=== PATIENT | male | born 1965 | race Caucasian/White ===

== ENCOUNTER 2023-12-18 05:28 | Inpatient (IN) | payer MEDICARE, OTHER ==
[2023-12-18] VITALS (34 sets, daily range): BP systolic 85–156; BP diastolic 62–138; TEMP 97–97.9; O2SAT 5–98
[~2023-12-18] VITALS: Ht 167.6 cm; Wt 45.8 kg
[2023-12-18] MEDS ORDERED: NITROGLYCERIN 0.4 MG/TAB BOTTLE ONE (05:41)
[2023-12-18] MEDS: NITROGLYCERIN 0.4 MG/TAB BOTTLE SL ONE ×2 (05:48→06:28)
[2023-12-18] MEDS: ALBUTEROL FS 2.5 MG/3 ML VIAL.NEB NEB ONE (05:50)
[2023-12-18] MEDS: IPRATROPIUM NEB FS 0.5 MG/2.5 ML AMPUL.NEB NEB ONE (05:50)
[2023-12-18] MEDS ORDERED: ALBUTEROL FS 2.5 MG/3 ML VIAL.NEB ONE (05:54)
[2023-12-18] MEDS ORDERED: IPRATROPIUM NEB FS 0.5 MG/2.5 ML AMPUL.NEB ONE (05:54)
[2023-12-18 06:20] LABS: EOSINOPHILS # (AUTO) 0.3 K/uL (0.0-0.7); EOSINOPHILS % (AUTO) 1.5 % (0.0-6.0); HEMATOCRIT 34 % (39-51); LYMPHOCYTES # (AUTO) 0.8 K/uL (0.8-4.8); LYMPHOCYTES % (AUTO) 4.2 % (20.0-44.0); MEAN CORPUSCULAR HEMOGLOBIN 30 PG (26.0-33.0); MEAN CORPUSCULAR HGB CONC 33 g/dl (31.0-36.0); MEAN CORPUSCULAR VOLUME 91 fL (80-96); MONOCYTES # (AUTO) 0.4 K/uL (0.1-1.30); MONOCYTES % (AUTO) 1.9 % (2.0-12.0); NEUTROPHILS # (AUTO) 18.4 K/uL (1.8-8.9); NEUTROPHILS % (AUTO) 92.4 % (43.0-81.0); PLATELET COUNT (AUTO) 373 K/uL (150-450); RED BLOOD CELL COUNT(AUTO) 3.73 MIL/uL (4.5-6.0); RED CELL DISTRIBUTION WIDTH 16.5 % (11.5-15.0); WHITE BLOOD COUNT (AUTO) 19.8 K/uL (4.3-11.0)
[2023-12-18 06:26] LABS: CALCIUM, SERUM 9.1 mg/dL (8.5-10.1); CARBON DIOXIDE 28 mmol/L (21-32); CHLORIDE 100 mmol/L (98-107); GLUCOSE 205 mg/dL (74-106); POTASSIUM 4.1 mmol/L (3.5-5.1); SODIUM SERUM 138 mmol/L (136-145); UREA NITROGEN, BLOOD 12 mg/dL (7-18)
[2023-12-18 06:28] LABS: APPEARANCE,URINE CLEAR (CLEAR); BILIRUBIN,URINE NEGATIVE (NEGATIVE); BLOOD, URINE NEGATIVE Ery/uL (NEGATIVE); COLOR,URINE YELLOW (YELLOW); KETONES,URINE NEGATIVE (NEGATIVE); LEUKOCYTE ESTERASE ,URINE NEGATIVE (NEGATIVE); NITRITE, URINE NEGATIVE (NEGATIVE); PH,URINE 5.5 (5.0-8.0); PROTEIN,URINE TRACE mg/dl (NEGATIVE); UGLUCOSE NEGATIVE (NEGATIVE); UROBILINOGEN,URINE 0.2 EU/dL (0.2)
[2023-12-18 06:29] LABS: D-DIMER 2.22 mg/L(FEU (0.17-0.50); INR 1.47 (0.91-1.10); PARTIAL THROMBOPLASTIN TIME 33.4 SEC (24.3-34.3); PROTHROMBIN TIME 15.2 SECS (9.2-11.1)
[2023-12-18 06:32] LABS: ALANINE AMINOTRANSFERASE 37 U/L (12-78); ALBUMIN 2.1 g/dL (3.4-5.0); ALKALINE PHOSPHATASE 113 U/L (46-116); ASPARTATE AMINOTRANSFERASE 33 U/L (15-37); BILIRUBIN,DIRECT 0.3 mg/dL (0.0-0.2); BILIRUBIN,TOTAL 0.8 mg/dL (0.2-1.0); TOTAL PROTEIN, SERUM 7.6 g/dL (6.4-8.2)
[2023-12-18 06:35] LABS: LACTIC ACID 2.9 mmol/L (0.4-2.0)
[2023-12-18] MEDS ORDERED: IV NS 0.9% 250 ML IV ONE (06:52)
[2023-12-18] MEDS ORDERED: IOHEXOL-350 100 ML VIAL IV ONE (06:52)
[2023-12-18] MEDS ORDERED: VANCOMYCIN 1 GM /D5W 250 ML PB IV ONE (07:07)
[2023-12-18] MEDS: VANCOMYCIN 1 GM in IV D5W 250 ML IV ONE (07:12)
[2023-12-18] MEDS: IV NS 0.9% 250 ML BAG IV ONE (07:12)
[2023-12-18] MEDS ORDERED: DILTIAZEM HCL 50 MG IV IV ONE (07:30)
[2023-12-18] MEDS ORDERED: CYAN-51 PO (07:48)
[2023-12-18] MEDS ORDERED: NA P133E RC (07:48)
[2023-12-18] MEDS ORDERED: MAGN400O6 PO (07:48)
[2023-12-18] MEDS ORDERED: ACET-868 PO (07:48)
[2023-12-18] MEDS ORDERED: HYDR-4076 PO (07:48)
[2023-12-18] MEDS ORDERED: DILT-32 PO (07:48)
[2023-12-18] MEDS ORDERED: METF-440 PO (07:48)
[2023-12-18] MEDS ORDERED: INSU100V39 SQ (07:48)
[2023-12-18] MEDS ORDERED: VANC125C11 PO (07:48)
[2023-12-18] MEDS ORDERED: ATOR10TA PO (07:48)
[2023-12-18] MEDS ORDERED: L. A1TAB10 PO (07:48)
[2023-12-18] MEDS ORDERED: HONE44PA TP (07:48)
[2023-12-18] MEDS ORDERED: HYDR-500 PO (07:48)
[2023-12-18] MEDS ORDERED: ALOG6.252 PO (07:48)
[2023-12-18] MEDS ORDERED: METO-357 PO (07:48)
[2023-12-18] MEDS ORDERED: SERT50TA PO (07:48)
[2023-12-18] MEDS ORDERED: ZINC220C6 PO (07:48)
[2023-12-18] MEDS ORDERED: LORA-258 PO (07:48)
[2023-12-18] MEDS ORDERED: MULT-213 PO (07:48)
[2023-12-18] MEDS ORDERED: MAGN200T5 PO (07:48)
[2023-12-18] MEDS ORDERED: ZINC57OI4 TP (07:48)
[2023-12-18] MEDS ORDERED: APIX5TAB PO (07:48)
[2023-12-18] MEDS ORDERED: ASCO-340 PO (07:48)
[2023-12-18] MEDS ORDERED: BISA10SU11 RC (07:48)
[2023-12-18] MEDS ORDERED: CHOL100043 PO (07:48)
[2023-12-18] MEDS ORDERED: DIGO125T PO (07:48)
[2023-12-18] MEDS ORDERED: DILTIAZEM HCL 25 MG IV ONE (08:10)
[2023-12-18] MEDS: CEFEPIME 2 GM in IV D5W 50 ML IV ONE (08:25)
[2023-12-18] MEDS: DILTIAZEM HCL 50 MG IV IV ONE (08:36)
[2023-12-18 09:10] LABS: ABG BASE EXCESS 0.6 mmol/L; ABG OXYGEN SATURATION 98.9 % (92.0-98.5); ABG PCO2 32.8 mmHg (35.0-45.0); ABG PH 7.477 (7.350-7.450); ABG PO2 208.6 mmHg (75.0-100.0); COHb 0.3 % (0.5-1.5); MetHb 0.3 % (0.0-1.5); O2Hb 98.3 % (94.0-97.0); SITE, ABG Right Radial
[2023-12-18] MEDS ORDERED: DIGOXIN INJ 0.5 MG/2 ML AMPUL ONE (09:19)
[2023-12-18] MEDS ORDERED: ZOSYN IVPB 4.5 G in IV D5W 50ml IV SCH (09:21)
[2023-12-18] MEDS: DIGOXIN INJ 0.5 MG/2 ML AMPUL IV ONE (09:27)
[2023-12-18] MEDS ORDERED: ENOXAPARIN SODIUM 40 MG/0.4 ML DISP.SYRIN SQ SCH (09:30)
[2023-12-18] MEDS ORDERED: PIPERACILLIN /TAZOBACTAM 3.375 G in IV D5W 50 ML IV SCH (09:30)
[2023-12-18] MEDS ORDERED: VANCOMYCIN 1 GM in IV D5W 250 ML IV SCH (10:00)
[2023-12-18] MEDS ORDERED: MAGNESIUM HYDROXIDE 30 ML UDC PO PRN (10:30)
[2023-12-18] MEDS ORDERED: DEXTROSE 50%-WATER 50 ML DISP.SYRIN IV PRN (10:30)
[2023-12-18] MEDS: BLOOD SUGAR DIAGNOSTIC 1 EACH STRIP IN SCH (11:22)
[2023-12-18] MEDS: FUROSEMIDE 40 MG/4 ML VIAL IV SCH (11:34)
[2023-12-18] MEDS: ENOXAPARIN SODIUM 60 MG/0.6 ML DISP.SYRIN SQ SCH (11:46)
[2023-12-18] MEDS: ZOSYN IVPB 4.5 G in IV D5W 50ml IV SCH (12:33)
[2023-12-18] MEDS ORDERED: CEFEPIME 2 GM in IV D5W 100 ML IV SCH (13:00)
[2023-12-18] MEDS: INSULIN REGULAR, HUMAN 100 UNIT/ML 3 ML VIAL SQ PRN (13:16)
[2023-12-18] MEDS: Z GUARD REMEDY 4 OZ OINT TP PRN (13:30)
[2023-12-18] MEDS ORDERED: METFORMIN 500 MG TABLET PO SCH (17:00)
[2023-12-18] MEDS ORDERED: APIXABAN 5 MG TABLET PO SCH (17:00)
[2023-12-18] MEDS: VANCOMYCIN 1 GM in IV D5W 250 ML IV SCH (17:33)
[2023-12-18] MEDS: METOPROLOL SUCCINATE 50 MG TAB.SR.24H PO SCH (17:33)
[2023-12-18] MEDS: ATORVASTATIN 10 MG TABLET PO SCH (22:11)
[2023-12-19] VITALS (43 sets, daily range): BP systolic 72–158; BP diastolic 33–129; TEMP 97.5–98.2; O2SAT 5–100
[2023-12-19 04:32] LABS: HEMATOCRIT 39 % (39-51); HEMOGLOBIN 13.3 g/dL (13.5-17.5); LYMPHOCYTES # (AUTO) 0.6 K/uL (0.8-4.8); LYMPHOCYTES % (AUTO) 6.7 % (20.0-44.0); MEAN CORPUSCULAR HEMOGLOBIN 30 PG (26.0-33.0); MEAN CORPUSCULAR HGB CONC 34 g/dl (31.0-36.0); MEAN CORPUSCULAR VOLUME 88 fL (80-96); MONOCYTES # (AUTO) 0.2 K/uL (0.1-1.30); MONOCYTES % (AUTO) 2.1 % (2.0-12.0); NEUTROPHILS # (AUTO) 8.8 K/uL (1.8-8.9); NEUTROPHILS % (AUTO) 91.2 % (43.0-81.0); PLATELET COUNT (AUTO) 147 K/uL (150-450); RED BLOOD CELL COUNT(AUTO) 4.49 MIL/uL (4.5-6.0); RED CELL DISTRIBUTION WIDTH 16.5 % (11.5-15.0); WHITE BLOOD COUNT (AUTO) 9.7 K/uL (4.3-11.0)
[2023-12-19 04:56] LABS: ALBUMIN 1.6 g/dL (3.4-5.0); CALCIUM, SERUM 8.5 mg/dL (8.5-10.1); CREATININE 1.2 mg/dL (0.6-1.3); POTASSIUM 3.1 mmol/L (3.5-5.1); TOTAL PROTEIN, SERUM 6.1 g/dL (6.4-8.2)
[2023-12-19 04:58] LABS: MAGNESIUM 0.9 mg/dL (1.8-2.4)
[2023-12-19 04:59] LABS: LACTIC ACID 2.1 mmol/L (0.4-2.0)
[2023-12-19 05:06] LABS: THYROID STIMULATING HORMONE 2.14 uIU/mL (0.358-3.74)
[2023-12-19] MEDS ORDERED: Magnesium 1GM/D5W 100ML PREMIX PIGGYBACK IV ONE (05:30)
[2023-12-19] MEDS: Magnesium 1GM/D5W 100ML PREMIX 100 ML IV SCH ×2 (05:36→06:59)
[2023-12-19] MEDS: IV NS 0.9% 250 ML IV PRN ×2 (06:06→21:03)
[2023-12-19] MEDS ORDERED: Magnesium 1GM/D5W 100ML PREMIX 100 ML IV SCH (09:30)
[2023-12-19] MEDS: ONDANSETRON HCL/PF 4 MG/2 ML VIAL IVP PRN (10:25)
[2023-12-19] MEDS: POTASSIUM CL. PREMIX PERIPHER. 50 ML IV SCH (10:28)
[2023-12-19] MEDS: THERAHONEY GEL 1.5 OZ TUBE TP SCH (10:28)
[2023-12-19] MEDS: PANTOPRAZOLE 40 MG TABLET.DR PO SCH (10:32)
[2023-12-19] MEDS: MAG HYDROX/AL HYDROX/SIMETH 30 ML UDC PO PRN (10:37)
[2023-12-19] MEDS: VANCOMYCIN HCL 125 MG/2.5 ML ORAL.SUSP PO SCH (11:36)
[2023-12-19] MEDS: GLUCERNA SHAKE 237 ML CAN PO SCH (11:37)
[2023-12-19] MEDS: PROSOURCE / PROSTAT (PYXIS) 30 ML UDC PO SCH (12:40)
[2023-12-19] MEDS: DIGOXIN 0.125 MG TABLET PO SCH (12:40)
[2023-12-19] MEDS: ARGININE/GLUTAMINE/CALCIUM BMB 1 EACH POWD.PACK PO SCH (17:16)
[2023-12-19] MEDS: VANCOMYCIN 750 MG in IV D5W 250 ML IV SCH (17:49)
[2023-12-19] MEDS: IV NS 0.9% 500 ML IV ONE (20:18)
[2023-12-19 21:02] LABS: BASOPHILS % (AUTO) 0.1 % (0.0-2.0); EOSINOPHILS % (AUTO) 0.4 % (0.0-6.0); HEMATOCRIT 26 % (39-51); HEMOGLOBIN 8.4 g/dL (13.5-17.5); LYMPHOCYTES # (AUTO) 0.7 K/uL (0.8-4.8); LYMPHOCYTES % (AUTO) 6.2 % (20.0-44.0); MEAN CORPUSCULAR HEMOGLOBIN 29 PG (26.0-33.0); MEAN CORPUSCULAR HGB CONC 33 g/dl (31.0-36.0); MEAN CORPUSCULAR VOLUME 89 fL (80-96); MONOCYTES # (AUTO) 0.2 K/uL (0.1-1.30); MONOCYTES % (AUTO) 1.8 % (2.0-12.0); NEUTROPHILS # (AUTO) 10.6 K/uL (1.8-8.9); NEUTROPHILS % (AUTO) 91.5 % (43.0-81.0); PLATELET COUNT (AUTO) 164 K/uL (150-450); RED BLOOD CELL COUNT(AUTO) 2.88 MIL/uL (4.5-6.0); RED CELL DISTRIBUTION WIDTH 16.3 % (11.5-15.0); WHITE BLOOD COUNT (AUTO) 11.6 K/uL (4.3-11.0)
[2023-12-19 23:04] LABS: ANISOCYTOSIS 1+; BASOPHILS % (MANUAL) 0 % (0.0-2.0); EOSINOPHILS % (MANUAL) 0 % (0-4); LYMPHOCYTES % (MANUAL) 7 % (16-48); MONOCYTES % (MANUAL) 5 % (0-11.0); NEUTROPHILS % (MANUAL) 88 (42-76); OVALOCYTES 1+; PLATELET ESTIMATE ADEQUATE
[2023-12-20] VITALS (35 sets, daily range): BP systolic 90–126; BP diastolic 59–93; TEMP 97.7–98.3; O2SAT 5–97
[2023-12-20 05:08] LABS: CALCIUM, SERUM 8.1 mg/dL (8.5-10.1); CREATININE 1.1 mg/dL (0.6-1.3); POTASSIUM 3.1 mmol/L (3.5-5.1)
[2023-12-20] MEDS: POTASSIUM CHLORIDE 20 MEQ TAB.PRT.SR PO SCH (08:27)
[2023-12-20 08:51] LABS: EOSINOPHILS % (AUTO) 0.3 % (0.0-6.0); HEMATOCRIT 29 % (39-51); HEMOGLOBIN 9.6 g/dL (13.5-17.5); LYMPHOCYTES # (AUTO) 0.7 K/uL (0.8-4.8); LYMPHOCYTES % (AUTO) 3.9 % (20.0-44.0); MEAN CORPUSCULAR HEMOGLOBIN 30 PG (26.0-33.0); MEAN CORPUSCULAR HGB CONC 33 g/dl (31.0-36.0); MEAN CORPUSCULAR VOLUME 89 fL (80-96); MONOCYTES # (AUTO) 0.2 K/uL (0.1-1.30); MONOCYTES % (AUTO) 1.5 % (2.0-12.0); NEUTROPHILS # (AUTO) 15.7 K/uL (1.8-8.9); NEUTROPHILS % (AUTO) 94.3 % (43.0-81.0); PLATELET COUNT (AUTO) 211 K/uL (150-450); RED BLOOD CELL COUNT(AUTO) 3.24 MIL/uL (4.5-6.0); RED CELL DISTRIBUTION WIDTH 16.2 % (11.5-15.0); WHITE BLOOD COUNT (AUTO) 16.6 K/uL (4.3-11.0)
[2023-12-20 09:12] LABS: MAGNESIUM 2.3 mg/dL (1.8-2.4); PHOSPHORUS 2.6 mg/dL (2.5-4.9)
[2023-12-20] MEDS: FUROSEMIDE 40 MG/4 ML VIAL IV SCH (11:17)
[2023-12-20] MEDS: VANCOMYCIN 1 GM in IV D5W 250ml IV SCH (12:41)
[2023-12-20] MEDS: CEFEPIME 2 GM in IV D5W 100 ML IV SCH (16:37)
[2023-12-21] VITALS (40 sets, daily range): BP systolic 78–124; BP diastolic 49–95; TEMP 98.2–98.7; O2SAT 91–100
[2023-12-21 04:59] LABS: BASOPHILS % (AUTO) 0.1 % (0.0-2.0); EOSINOPHILS % (AUTO) 0.3 % (0.0-6.0); HEMATOCRIT 24 % (39-51); HEMOGLOBIN 8.1 g/dL (13.5-17.5); LYMPHOCYTES # (AUTO) 0.8 K/uL (0.8-4.8); LYMPHOCYTES % (AUTO) 7.6 % (20.0-44.0); MEAN CORPUSCULAR HEMOGLOBIN 30 PG (26.0-33.0); MEAN CORPUSCULAR HGB CONC 34 g/dl (31.0-36.0); MEAN CORPUSCULAR VOLUME 88 fL (80-96); MONOCYTES # (AUTO) 0.1 K/uL (0.1-1.30); MONOCYTES % (AUTO) 1.2 % (2.0-12.0); NEUTROPHILS # (AUTO) 9.7 K/uL (1.8-8.9); NEUTROPHILS % (AUTO) 90.8 % (43.0-81.0); PLATELET COUNT (AUTO) 159 K/uL (150-450); WHITE BLOOD COUNT (AUTO) 10.7 K/uL (4.3-11.0)
[2023-12-21 05:18] LABS: BILIRUBIN,TOTAL 0.4 mg/dL (0.2-1.0); CREATININE 1.1 mg/dL (0.6-1.3); MAGNESIUM 1.7 mg/dL (1.8-2.4); PHOSPHORUS 2.2 mg/dL (2.5-4.9); POTASSIUM 3.1 mmol/L (3.5-5.1); TOTAL PROTEIN, SERUM 5.9 g/dL (6.4-8.2)
[2023-12-21 05:25] LABS: ALBUMIN 1.4 g/dL (3.4-5.0)
[2023-12-21] MEDS ORDERED: POTASSIUM PHOSPHATE MM 15 MMOL in IV NS 0.9% 250 ML IV SCH (09:30)
[2023-12-21] MEDS: Magnesium 1GM/D5W 100ML PREMIX 100 ML IV SCH (10:42)
[2023-12-21 12:11] LABS: ABG BASE EXCESS 10.3 mmol/L; ABG PCO2 50.3 mmHg (35.0-45.0); ABG PH 7.464 (7.350-7.450); ABG PO2 53.4 mmHg (75.0-100.0); ABG TOTAL HEMOGLOBIN 9.2 G/dL (13.5-18.0); AaDO2 464.2 mmHg; COHb 0.3 % (0.5-1.5); MetHb 0.3 % (0.0-1.5); O2Hb 86.5 % (94.0-97.0); SITE, ABG Right Femoral; VENT MODE, BG 80% fio2 high flow
[2023-12-21] MEDS: POTASSIUM PHOSPHATE MM 7.5 MMOL in IV NS 0.9% 100 ML IV SCH (12:14)
[2023-12-21 17:13] LABS: OCCULT BLOOD STOOL NEGATIVE (NEGATIVE)
[2023-12-21] MEDS ORDERED: hydrALAZINE HCL IV 20 MG VIAL IV PRN (23:00)
[2023-12-21] MEDS ORDERED: LORAZEPAM INJ 2 MG/ML VIAL IV PRN (23:00)
[2023-12-22] VITALS (35 sets, daily range): BP systolic 92–161; BP diastolic 64–114; TEMP 97.1–98.4; O2SAT 82–100
[2023-12-22] MEDS: ACETAMINOPHEN 325 MG TABLET PO PRN (02:01)
[2023-12-22 05:00] LABS: EOSINOPHILS # (AUTO) 0.1 K/uL (0.0-0.7); EOSINOPHILS % (AUTO) 0.7 % (0.0-6.0); HEMATOCRIT 25 % (39-51); HEMOGLOBIN 8.4 g/dL (13.5-17.5); LYMPHOCYTES # (AUTO) 0.5 K/uL (0.8-4.8); LYMPHOCYTES % (AUTO) 5.4 % (20.0-44.0); MEAN CORPUSCULAR HEMOGLOBIN 30 PG (26.0-33.0); MEAN CORPUSCULAR HGB CONC 34 g/dl (31.0-36.0); MEAN CORPUSCULAR VOLUME 89 fL (80-96); MONOCYTES # (AUTO) 0.2 K/uL (0.1-1.30); MONOCYTES % (AUTO) 2.1 % (2.0-12.0); NEUTROPHILS # (AUTO) 8.5 K/uL (1.8-8.9); NEUTROPHILS % (AUTO) 91.8 % (43.0-81.0); PLATELET COUNT (AUTO) 135 K/uL (150-450); RED BLOOD CELL COUNT(AUTO) 2.81 MIL/uL (4.5-6.0); RED CELL DISTRIBUTION WIDTH 16.2 % (11.5-15.0); WHITE BLOOD COUNT (AUTO) 9.3 K/uL (4.3-11.0)
[2023-12-22 05:13] LABS: BILIRUBIN,DIRECT 0.2 mg/dL (0.0-0.2); BILIRUBIN,TOTAL 0.5 mg/dL (0.2-1.0); CALCIUM, SERUM 7.9 mg/dL (8.5-10.1); CREATININE 0.8 mg/dL (0.6-1.3); PHOSPHORUS 2.1 mg/dL (2.5-4.9); TOTAL PROTEIN, SERUM 5.4 g/dL (6.4-8.2)
[2023-12-22 05:15] LABS: ALBUMIN 1.3 g/dL (3.4-5.0); POTASSIUM 2.8 mmol/L (3.5-5.1)
[2023-12-22] MEDS: POTASSIUM CHLORIDE 20 MEQ TAB.PRT.SR PO ONE (07:36)
[2023-12-22] MEDS: NEUTRA PHOS 1 POWD.PACKET PO SCH (09:51)
[2023-12-22] MEDS: ENOXAPARIN SODIUM 60 MG/0.6 ML DISP.SYRIN SQ SCH (21:02)
[2023-12-23] VITALS (35 sets, daily range): BP systolic 105–169; BP diastolic 75–133; TEMP 97–98.6; O2SAT 94–100
[2023-12-23] MEDS: MORPHINE SULFATE INJ 2 MG/ML DISP.SYRIN IM PRN (01:45)
[2023-12-23 05:13] LABS: CALCIUM, SERUM 8.4 mg/dL (8.5-10.1); CREATININE 0.9 mg/dL (0.6-1.3); POTASSIUM 4.9 mmol/L (3.5-5.1)
[2023-12-23] MEDS: MORPHINE SULFATE INJ 2 MG/ML DISP.SYRIN IV PRN (05:45)
[2023-12-23 07:47] LABS: BASOPHILS % (AUTO) 0.2 % (0.0-2.0); EOSINOPHILS % (AUTO) 0.1 % (0.0-6.0); HEMATOCRIT 29 % (39-51); HEMOGLOBIN 9.3 g/dL (13.5-17.5); LYMPHOCYTES # (AUTO) 0.8 K/uL (0.8-4.8); LYMPHOCYTES % (AUTO) 5.7 % (20.0-44.0); MEAN CORPUSCULAR HEMOGLOBIN 29 PG (26.0-33.0); MEAN CORPUSCULAR HGB CONC 32 g/dl (31.0-36.0); MEAN CORPUSCULAR VOLUME 91 fL (80-96); MONOCYTES # (AUTO) 0.3 K/uL (0.1-1.30); NEUTROPHILS # (AUTO) 12.5 K/uL (1.8-8.9); PLATELET COUNT (AUTO) 171 K/uL (150-450); RED BLOOD CELL COUNT(AUTO) 3.19 MIL/uL (4.5-6.0); RED CELL DISTRIBUTION WIDTH 16.9 % (11.5-15.0); WHITE BLOOD COUNT (AUTO) 13.6 K/uL (4.3-11.0)
[2023-12-23] MEDS: QUETIAPINE FUMARATE 25 MG TABLET PO SCH (15:40)
[2023-12-24] VITALS (26 sets, daily range): BP systolic 82–156; BP diastolic 53–118; TEMP 97.2–99.4; O2SAT 89–100
[2023-12-24 02:04] LABS: ABG BASE EXCESS 1.9 mmol/L; ABG OXYGEN SATURATION 94.4 % (92.0-98.5); ABG PCO2 44.9 mmHg (35.0-45.0); ABG PH 7.398 (7.350-7.450); ABG PO2 79.1 mmHg (75.0-100.0); ABG TOTAL HEMOGLOBIN 10.1 G/dL (13.5-18.0); MetHb 0.1 % (0.0-1.5); O2Hb 94.3 % (94.0-97.0); SITE, ABG Right Brachial; VENT MODE, BG HFNC 40L 100%
[2023-12-24 03:15] LABS: BASOPHILS % (AUTO) 0.1 % (0.0-2.0); EOSINOPHILS % (AUTO) 0.2 % (0.0-6.0); HEMATOCRIT 26 % (39-51); HEMOGLOBIN 8.6 g/dL (13.5-17.5); LYMPHOCYTES # (AUTO) 0.9 K/uL (0.8-4.8); LYMPHOCYTES % (AUTO) 7.3 % (20.0-44.0); MEAN CORPUSCULAR HEMOGLOBIN 30 PG (26.0-33.0); MEAN CORPUSCULAR HGB CONC 33 g/dl (31.0-36.0); MEAN CORPUSCULAR VOLUME 91 fL (80-96); MONOCYTES # (AUTO) 0.3 K/uL (0.1-1.30); MONOCYTES % (AUTO) 2.6 % (2.0-12.0); NEUTROPHILS # (AUTO) 10.9 K/uL (1.8-8.9); NEUTROPHILS % (AUTO) 89.8 % (43.0-81.0); PLATELET COUNT (AUTO) 124 K/uL (150-450); WHITE BLOOD COUNT (AUTO) 12.1 K/uL (4.3-11.0)
[2023-12-24 03:24] LABS: CREATININE 1.2 mg/dL (0.6-1.3); POTASSIUM 4.5 mmol/L (3.5-5.1)
[2023-12-24] MEDS: BUMETANIDE INJ 8 MG in IV NS 0.9% 48 ML IV ONE (09:17)
[2023-12-24] MEDS: PANTOPRAZOLE 40 MG VIAL IV SCH (09:25)
[2023-12-24] MEDS: VANCOMYCIN HCL 125 MG/2.5 ML ORAL.SUSP PO SCH (12:00)
[2023-12-24] MEDS: DIGOXIN INJ 0.5 MG/2 ML AMPUL IV SCH (13:15)
[2023-12-24 15:51] LABS: APPEARANCE,URINE SLIGHTLY CLOUDY (CLEAR); BILIRUBIN,URINE NEGATIVE (NEGATIVE); BLOOD, URINE NEGATIVE Ery/uL (NEGATIVE); COLOR,URINE YELLOW (YELLOW); KETONES,URINE TRACE mg/dL (NEGATIVE); LEUKOCYTE ESTERASE ,URINE NEGATIVE (NEGATIVE); NITRITE, URINE NEGATIVE (NEGATIVE); PH,URINE 5.5 (5.0-8.0); PROTEIN,URINE NEGATIVE (NEGATIVE); UGLUCOSE NEGATIVE (NEGATIVE); UROBILINOGEN,URINE 0.2 EU/dL (0.2)
[2023-12-24 16:15] LABS: ADD URINE CULTURE NO; BACTERIA,URINE 1+ /HPF (None Seen); RBC,URINE 0-2 /HPF (0-2); SQUAMOUS EPITHELIAL CELL,UR Few /HPF (None Seen); URINE AMORPHOUS URATE Moderate /HPF (None Seen); WBC,URINE 0-2 /HPF (0-3)
[2023-12-24 16:16] LABS: COARSE GRANULAR CASTS,URINE Few /LPF (None Seen); EOSINOPHIL,URINE None Seen
[2023-12-24 18:46] LABS: CREATININE, URINE 35.1 MG/DL (30.0-125.0); URINE TOTAL PROTEIN 53.7 mg/dL (0-11.9)
[2023-12-25] VITALS (41 sets, daily range): BP systolic 72–140; BP diastolic 44–92; TEMP 97.1–98.5; O2SAT 95–100
[2023-12-25 03:44] LABS: BASOPHILS % (AUTO) 0.2 % (0.0-2.0); EOSINOPHILS % (AUTO) 0.1 % (0.0-6.0); HEMATOCRIT 27 % (39-51); LYMPHOCYTES # (AUTO) 0.9 K/uL (0.8-4.8); LYMPHOCYTES % (AUTO) 8.3 % (20.0-44.0); MEAN CORPUSCULAR HEMOGLOBIN 30 PG (26.0-33.0); MEAN CORPUSCULAR HGB CONC 33 g/dl (31.0-36.0); MEAN CORPUSCULAR VOLUME 90 fL (80-96); MONOCYTES # (AUTO) 0.2 K/uL (0.1-1.30); MONOCYTES % (AUTO) 1.9 % (2.0-12.0); NEUTROPHILS # (AUTO) 9.9 K/uL (1.8-8.9); NEUTROPHILS % (AUTO) 89.5 % (43.0-81.0); PLATELET COUNT (AUTO) 118 K/uL (150-450); RED BLOOD CELL COUNT(AUTO) 3.05 MIL/uL (4.5-6.0); RED CELL DISTRIBUTION WIDTH 16.9 % (11.5-15.0)
[2023-12-25 04:02] LABS: ALBUMIN 1.6 g/dL (3.4-5.0); BILIRUBIN,TOTAL 0.8 mg/dL (0.2-1.0); CREATININE 1.6 mg/dL (0.6-1.3); MAGNESIUM 1.7 mg/dL (1.8-2.4); PHOSPHORUS 2.5 mg/dL (2.5-4.9); POTASSIUM 3.2 mmol/L (3.5-5.1); TOTAL PROTEIN, SERUM 6.1 g/dL (6.4-8.2)
[2023-12-25] MEDS: MAGNESIUM OXIDE 400 MG TABLET PO ONE (09:30)
[2023-12-25] MEDS: POTASSIUM CL. PREMIX PERIPHER. 50 ML IV SCH (09:31)
[2023-12-25 13:25] LABS: ABG BASE EXCESS 8.6 mmol/L; ABG OXYGEN SATURATION 94.2 % (92.0-98.5); ABG PCO2 23.1 mmHg (35.0-45.0); ABG PH 7.703 (7.350-7.450); ABG PO2 63.8 mmHg (75.0-100.0); ABG TOTAL HEMOGLOBIN 10.1 G/dL (13.5-18.0); AaDO2 338.6 mmHg; MetHb 0.1 % (0.0-1.5); O2Hb 94.1 % (94.0-97.0); SITE, ABG Right Brachial
[2023-12-25 15:37] LABS: ABG BASE EXCESS 5.5 mmol/L; ABG OXYGEN SATURATION 98.7 % (92.0-98.5); ABG PCO2 125.3 mmHg (35.0-45.0); ABG PH 7.106 (7.350-7.450); ABG PO2 213.5 mmHg (75.0-100.0); ABG TOTAL HEMOGLOBIN 11.7 G/dL (13.5-18.0); AaDO2 374.2 mmHg; COHb 0.4 % (0.5-1.5); MetHb 0.4 % (0.0-1.5); O2Hb 97.9 % (94.0-97.0); PEEP,BG 5 cm H2O; SITE, ABG Right Brachial; VT, ABG 400 mL
[2023-12-25] MEDS ORDERED: PHARMACY TO CHANGE PO MEDS TO GT/NG XX PRN (16:30)
[2023-12-25] MEDS: ASPIRIN 81 MG TAB.CHEW NG SCH (17:33)
[2023-12-25] MEDS: ARGININE/GLUTAMINE/CALCIUM BMB 1 EACH POWD.PACK GT SCH (17:33)
[2023-12-25] MEDS: PROSOURCE / PROSTAT (PYXIS) 30 ML UDC GT SCH (17:33)
[2023-12-25] MEDS: GLUCERNA SHAKE 237 ML CAN GT SCH (17:34)
[2023-12-25 17:57] LABS: ABG BASE EXCESS 7.1 mmol/L; ABG OXYGEN SATURATION 94.7 % (92.0-98.5); ABG PCO2 63.1 mmHg (35.0-45.0); ABG PH 7.353 (7.350-7.450); ABG PO2 87.8 mmHg (75.0-100.0); ABG TOTAL HEMOGLOBIN 10.9 G/dL (13.5-18.0); AaDO2 416.4 mmHg; COHb 0.3 % (0.5-1.5); MetHb 0.3 % (0.0-1.5); O2Hb 94.1 % (94.0-97.0); PEEP,BG 5 cm H2O; SITE, ABG Right Brachial; VT, ABG 450 mL
[2023-12-25] MEDS ORDERED: PHENYLEPHRINE 50 MG in IV NS 0.9% 245 ML IV PRN (18:30)
[2023-12-25] MEDS: VANCOMYCIN HCL 125 MG/2.5 ML ORAL.SUSP GT SCH (18:45)
[2023-12-25] MEDS ORDERED: ETOMIDATE 2 MG/ML VIAL IV ONE (18:56)
[2023-12-25] MEDS ORDERED: ROCURONIUM BROMIDE 50 MG/5 ML IV ONE (18:57)
[2023-12-25] MEDS: PHENYLEPHRINE 100 MG in IV NS 0.9% 240 ML IV PRN (19:42)
[2023-12-25] MEDS: PROPOFOL 100 ML IV PRN (19:44)
[2023-12-26] VITALS (94 sets, daily range): BP systolic 81–129; BP diastolic 52–96; TEMP 97.1–99; O2SAT 95–100
[2023-12-26] MEDS ORDERED: Magnesium 1GM/D5W 100ML PREMIX 100 ML IV SCH (00:30)
[2023-12-26] MEDS: Magnesium 1GM/D5W 100ML PREMIX 100 ML IV SCH (01:05)
[2023-12-26 04:55] LABS: CREATININE 2.3 mg/dL (0.6-1.3); POTASSIUM 3.5 mmol/L (3.5-5.1)
[2023-12-26 07:54] LABS: ABG BASE EXCESS 5.2 mmol/L; ABG OXYGEN SATURATION 98.6 % (92.0-98.5); ABG PCO2 33.8 mmHg (35.0-45.0); ABG PH 7.532 (7.350-7.450); ABG PO2 165.9 mmHg (75.0-100.0); ABG TOTAL HEMOGLOBIN 11.9 G/dL (13.5-18.0); COHb 0.3 % (0.5-1.5); MetHb 0.3 % (0.0-1.5); SITE, ABG Left Brachial; VENT MODE, BG ac 24 450 60% +5
[2023-12-26 08:22] LABS: APPEARANCE,URINE TURBID (CLEAR); BILIRUBIN,URINE NEGATIVE (NEGATIVE); BLOOD, URINE 2+ Ery/uL (NEGATIVE); COLOR,URINE DARK YELLOW (YELLOW); KETONES,URINE 1+ mg/dL (NEGATIVE); LEUKOCYTE ESTERASE ,URINE NEGATIVE (NEGATIVE); NITRITE, URINE NEGATIVE (NEGATIVE); PH,URINE 5.5 (5.0-8.0); PROTEIN,URINE 1+ mg/dl (NEGATIVE); UGLUCOSE NEGATIVE (NEGATIVE); UROBILINOGEN,URINE 0.2 EU/dL (0.2)
[2023-12-26] MEDS: PANTOPRAZOLE 40 MG/PACK PACK GT SCH (08:22)
[2023-12-26 08:23] LABS: ADD URINE CULTURE YES; BACTERIA,URINE Rare /HPF (None Seen); SQUAMOUS EPITHELIAL CELL,UR Many /HPF (None Seen)
[2023-12-26 08:27] LABS: CREATININE, URINE 96.1 MG/DL (30.0-125.0); URINE TOTAL PROTEIN 164.4 mg/dL (0-11.9)
[2023-12-26] MEDS: QUETIAPINE FUMARATE 25 MG TABLET GT SCH (09:00)
[2023-12-26 10:22] LABS: EOSINOPHIL,URINE None Seen
[2023-12-26] MEDS ORDERED: VANCOMYCIN 1 GM in IV D5W 250ml IV SCH (18:00)
[2023-12-27] VITALS (90 sets, daily range): BP systolic 86–138; BP diastolic 56–93; TEMP 98.5–100.8; O2SAT 92–100
[2023-12-27 04:55] LABS: CALCIUM, SERUM 9.1 mg/dL (8.5-10.1); CREATININE 2.5 mg/dL (0.6-1.3)
[2023-12-27 04:57] LABS: POTASSIUM 2.6 mmol/L (3.5-5.1)
[2023-12-27] MEDS: POTASSIUM CHLORIDE 10 MEQ/50 ML PREMIXED IVPB FOR PERIPHERAL LINE IV ONE (05:42)
[2023-12-27] MEDS: POTASSIUM CHLORIDE 20 MEQ POWDER PACKET GT ONE ×2 (05:42→09:20)
[2023-12-27] MEDS ORDERED: POTASSIUM CHLORIDE 20 MEQ POWDER PACKET GT SCH (06:00)
[2023-12-27] MEDS ORDERED: INSULIN REGULAR, HUMAN 100 UNIT/ML 3 ML VIAL SQ PRN (08:00)
[2023-12-27] MEDS ORDERED: DEXTROSE 50%-WATER 50 ML DISP.SYRIN IV PRN ×2 (08:00→08:30)
[2023-12-27 08:48] LABS: ABG BASE EXCESS 5.9 mmol/L; ABG OXYGEN SATURATION 95.1 % (92.0-98.5); ABG PCO2 39.8 mmHg (35.0-45.0); ABG PO2 81.2 mmHg (75.0-100.0); ABG TOTAL HEMOGLOBIN 10.3 G/dL (13.5-18.0); AaDO2 85.9 mmHg; MetHb 0.4 % (0.0-1.5); O2Hb 94.7 % (94.0-97.0); SITE, ABG Left Brachial; VENT MODE, BG AC 16 450 30 +5
[2023-12-27] MEDS: VANCOMYCIN 1 GM in IV D5W 250ml IV SCH (09:22)
[2023-12-27] MEDS: GLUCERNA 1.2 1,000 ML BOTTLE NG PRN (10:07)
[2023-12-27] MEDS ORDERED: BLOOD SUGAR DIAGNOSTIC 1 EACH STRIP IN SCH (12:00)
[2023-12-27] MEDS: BLOOD SUGAR DIAGNOSTIC 1 EACH STRIP IN SCH (12:18)
[2023-12-27] MEDS: INSULIN REGULAR, HUMAN 100 UNIT/ML 3 ML VIAL SQ PRN (12:24)
[2023-12-27] MEDS: CEFEPIME 2 GM in IV D5W 100 ML IV SCH (16:26)
[2023-12-28] VITALS (76 sets, daily range): BP systolic 88–149; BP diastolic 48–115; TEMP 97.6–101.1; O2SAT 96–100
[2023-12-28 04:20] LABS: HEMOGLOBIN 9.3 g/dL (13.5-17.5); WHITE BLOOD COUNT (AUTO) 8.7 K/uL (4.3-11.0)
[2023-12-28 04:26] LABS: BASOPHILS % (AUTO) 0.1 % (0.0-2.0); EOSINOPHILS # (AUTO) 0.2 K/uL (0.0-0.7); EOSINOPHILS % (AUTO) 2.3 % (0.0-6.0); HEMATOCRIT 29 % (39-51); LYMPHOCYTES # (AUTO) 0.9 K/uL (0.8-4.8); LYMPHOCYTES % (AUTO) 10.7 % (20.0-44.0); MEAN CORPUSCULAR HEMOGLOBIN 31 PG (26.0-33.0); MEAN CORPUSCULAR HGB CONC 33 g/dl (31.0-36.0); MEAN CORPUSCULAR VOLUME 94 fL (80-96); MONOCYTES # (AUTO) 0.5 K/uL (0.1-1.30); MONOCYTES % (AUTO) 6.2 % (2.0-12.0); NEUTROPHILS % (AUTO) 80.7 % (43.0-81.0); PLATELET COUNT (AUTO) 84 K/uL (150-450); RED BLOOD CELL COUNT(AUTO) 3.03 MIL/uL (4.5-6.0); RED CELL DISTRIBUTION WIDTH 19.1 % (11.5-15.0)
[2023-12-28 04:35] LABS: CALCIUM, SERUM 9.8 mg/dL (8.5-10.1); CREATININE 3.1 mg/dL (0.6-1.3); POTASSIUM 3.9 mmol/L (3.5-5.1)
[2023-12-28 05:02] LABS: ANISOCYTOSIS 1+; EOSINOPHILS % (MANUAL) 1 % (0-4); LYMPHOCYTES % (MANUAL) 15 % (16-48); MONOCYTES % (MANUAL) 2 % (0-11.0); NEUTROPHILS % (MANUAL) 82 (42-76); OVALOCYTES 1+; PLATELET ESTIMATE DECREASED
[2023-12-28] MEDS: IV D5W 1,000 ML IV PRN (10:35)
[2023-12-28] MEDS ORDERED: MAG HYDROX/AL HYDROX/SIMETH 30 ML UDC NG PRN (11:30)
[2023-12-28] MEDS ORDERED: MAGNESIUM HYDROXIDE 30 ML UDC NG PRN (11:30)
[2023-12-28] MEDS: ACETAMINOPHEN 650 MG/20.3 ML UDC NG PRN (12:45)
[2023-12-28] MEDS: METOPROLOL TARTRATE 25 MG TABLET PO SCH (13:52)
[2023-12-28 14:42] LABS: APPEARANCE,URINE CLOUDY (CLEAR); BILIRUBIN,URINE NEGATIVE (NEGATIVE); BLOOD, URINE 3+ Ery/uL (NEGATIVE); COLOR,URINE YELLOW (YELLOW); KETONES,URINE TRACE mg/dL (NEGATIVE); LEUKOCYTE ESTERASE ,URINE NEGATIVE (NEGATIVE); NITRITE, URINE NEGATIVE (NEGATIVE); PH,URINE 5.5 (5.0-8.0); PROTEIN,URINE 1+ mg/dl (NEGATIVE); UGLUCOSE NEGATIVE (NEGATIVE); UROBILINOGEN,URINE 0.2 EU/dL (0.2)
[2023-12-28 15:58] LABS: ADD URINE CULTURE YES; BACTERIA,URINE RARE /HPF (None Seen); RBC,URINE 51-80 /HPF (0-2); WBC,URINE 0-2 /HPF (0-3)
[2023-12-28 15:59] LABS: YEAST,URINE Moderate /HPF (None Seen)
[2023-12-28] MEDS: GLUCERNA 1.2 1,000 ML BOTTLE NG SCH (17:29)
[2023-12-29] VITALS (95 sets, daily range): BP systolic 92–137; BP diastolic 47–86; TEMP 97.2–98.2; O2SAT 100
[2023-12-29 05:12] LABS: BASOPHILS % (AUTO) 0.2 % (0.0-2.0); EOSINOPHILS # (AUTO) 0.5 K/uL (0.0-0.7); EOSINOPHILS % (AUTO) 5.9 % (0.0-6.0); HEMATOCRIT 25 % (39-51); HEMOGLOBIN 8.3 g/dL (13.5-17.5); LYMPHOCYTES # (AUTO) 0.9 K/uL (0.8-4.8); LYMPHOCYTES % (AUTO) 9.4 % (20.0-44.0); MEAN CORPUSCULAR HEMOGLOBIN 31 PG (26.0-33.0); MEAN CORPUSCULAR HGB CONC 33 g/dl (31.0-36.0); MEAN CORPUSCULAR VOLUME 93 fL (80-96); MONOCYTES # (AUTO) 0.6 K/uL (0.1-1.30); MONOCYTES % (AUTO) 6.2 % (2.0-12.0); NEUTROPHILS # (AUTO) 7.1 K/uL (1.8-8.9); NEUTROPHILS % (AUTO) 78.3 % (43.0-81.0); PLATELET COUNT (AUTO) 69 K/uL (150-450); RED BLOOD CELL COUNT(AUTO) 2.73 MIL/uL (4.5-6.0); RED CELL DISTRIBUTION WIDTH 19.1 % (11.5-15.0); WHITE BLOOD COUNT (AUTO) 9.1 K/uL (4.3-11.0)
[2023-12-29 05:38] LABS: CALCIUM, SERUM 9.1 mg/dL (8.5-10.1); CREATININE 3.7 mg/dL (0.6-1.3); MAGNESIUM 2.3 mg/dL (1.8-2.4); PHOSPHORUS 4.5 mg/dL (2.5-4.9); POTASSIUM 3.9 mmol/L (3.5-5.1)
[2023-12-29 06:12] LABS: EOSINOPHILS % (MANUAL) 2 % (0-4); LYMPHOCYTES % (MANUAL) 9 % (16-48); MONOCYTES % (MANUAL) 9 % (0-11.0); NEUTROPHILS % (MANUAL) 80 (42-76)
[2023-12-29 06:13] LABS: ANISOCYTOSIS 1+; PLATELET ESTIMATE DECREASED
[2023-12-29 06:14] LABS: OVALOCYTES 1+
[2023-12-29] MEDS: VIT B CMPLX 3/FA/VIT C/BIOTIN 1 TAB TABLET NG SCH (08:34)
[2023-12-29] MEDS: ZINC SULFATE 220 MG CAPSULE NG SCH (08:34)
[2023-12-29] MEDS: PANTOPRAZOLE 40 MG/PACK PACK NG SCH (08:34)
[2023-12-29] MEDS ORDERED: ASPIRIN 81 MG TAB.CHEW NG SCH (09:00)
[2023-12-29] MEDS: METOPROLOL TARTRATE 25 MG TABLET PO SCH (09:30)
[2023-12-29] MEDS ORDERED: ENOXAPARIN SODIUM 40 MG/0.4 ML DISP.SYRIN SQ SCH (13:30)
[2023-12-29] MEDS: ENOXAPARIN SODIUM 60 MG/0.6 ML DISP.SYRIN SQ SCH (14:51)
[2023-12-29] MEDS ORDERED: DEXTROSE 50%-WATER 50 ML DISP.SYRIN IV PRN (15:30)
[2023-12-29] MEDS: BLOOD SUGAR DIAGNOSTIC 1 EACH STRIP IN SCH (17:11)
[2023-12-29] MEDS: INSULIN REGULAR, HUMAN 100 UNIT/ML 3 ML VIAL SQ PRN (17:34)
[2023-12-30] VITALS (46 sets, daily range): BP systolic 82–146; BP diastolic 54–86; TEMP 97.6–98.2; O2SAT 100
[2023-12-30 04:22] LABS: CALCIUM, SERUM 8.7 mg/dL (8.5-10.1); CREATININE 2.9 mg/dL (0.6-1.3); POTASSIUM 3.6 mmol/L (3.5-5.1)
[2023-12-30] MEDS: METOCLOPRAMIDE HCL 10 MG/2 ML VIAL IV SCH (10:17)
[2023-12-30 18:36] LABS: D-DIMER 1.4 mg/L(FEU (0.17-0.50); INR 1.25 (0.91-1.10); PROTHROMBIN TIME 13.1 SECS (9.2-11.1)
[2023-12-30 20:10] LABS: RHEUMATOID FACTOR SCREEN NEGATIVE (NEGATIVE)
[2023-12-31] VITALS (25 sets, daily range): BP systolic 97–125; BP diastolic 53–79; TEMP 98–98.7; O2SAT 99–100
[2023-12-31 04:36] LABS: BASOPHILS % (AUTO) 0.1 % (0.0-2.0); EOSINOPHILS # (AUTO) 0.3 K/uL (0.0-0.7); EOSINOPHILS % (AUTO) 3.6 % (0.0-6.0); HEMATOCRIT 26 % (39-51); HEMOGLOBIN 8.5 g/dL (13.5-17.5); LYMPHOCYTES # (AUTO) 0.9 K/uL (0.8-4.8); LYMPHOCYTES % (AUTO) 9.4 % (20.0-44.0); MEAN CORPUSCULAR HEMOGLOBIN 30 PG (26.0-33.0); MEAN CORPUSCULAR HGB CONC 33 g/dl (31.0-36.0); MEAN CORPUSCULAR VOLUME 92 fL (80-96); MONOCYTES # (AUTO) 0.7 K/uL (0.1-1.30); MONOCYTES % (AUTO) 7.4 % (2.0-12.0); NEUTROPHILS # (AUTO) 7.2 K/uL (1.8-8.9); NEUTROPHILS % (AUTO) 79.5 % (43.0-81.0); PLATELET COUNT (AUTO) 95 K/uL (150-450); RED CELL DISTRIBUTION WIDTH 19.7 % (11.5-15.0); WHITE BLOOD COUNT (AUTO) 9.1 K/uL (4.3-11.0)
[2023-12-31 04:51] LABS: D-DIMER 2.2 mg/L(FEU (0.17-0.50); INR 1.18 (0.91-1.10); PARTIAL THROMBOPLASTIN TIME 30.7 SEC (24.3-34.3); PROTHROMBIN TIME 12.4 SECS (9.2-11.1)
[2023-12-31 09:02] LABS: CALCIUM, SERUM 9.1 mg/dL (8.5-10.1); CREATININE 3.2 mg/dL (0.6-1.3); POTASSIUM 3.7 mmol/L (3.5-5.1)
[2024-01-01] VITALS (25 sets, daily range): BP systolic 105–132; BP diastolic 59–86; TEMP 97.4–98.1; O2SAT 92–100
[2024-01-01] MEDS ORDERED: ENOXAPARIN SODIUM 60 MG/0.6 ML DISP.SYRIN SQ SCH (01:00)
[2024-01-01 03:46] LABS: BASOPHILS % (AUTO) 0.2 % (0.0-2.0); EOSINOPHILS # (AUTO) 0.2 K/uL (0.0-0.7); EOSINOPHILS % (AUTO) 2.1 % (0.0-6.0); HEMATOCRIT 24 % (39-51); LYMPHOCYTES # (AUTO) 0.6 K/uL (0.8-4.8); LYMPHOCYTES % (AUTO) 7.3 % (20.0-44.0); MEAN CORPUSCULAR HEMOGLOBIN 30 PG (26.0-33.0); MEAN CORPUSCULAR HGB CONC 33 g/dl (31.0-36.0); MEAN CORPUSCULAR VOLUME 92 fL (80-96); MONOCYTES # (AUTO) 0.7 K/uL (0.1-1.30); MONOCYTES % (AUTO) 7.6 % (2.0-12.0); NEUTROPHILS # (AUTO) 7.4 K/uL (1.8-8.9); NEUTROPHILS % (AUTO) 82.8 % (43.0-81.0); PLATELET COUNT (AUTO) 111 K/uL (150-450); RED BLOOD CELL COUNT(AUTO) 2.66 MIL/uL (4.5-6.0); WHITE BLOOD COUNT (AUTO) 8.9 K/uL (4.3-11.0)
[2024-01-01 04:13] LABS: CALCIUM, SERUM 9.4 mg/dL (8.5-10.1); CREATININE 3.7 mg/dL (0.6-1.3); MAGNESIUM 2.9 mg/dL (1.8-2.4); POTASSIUM 3.9 mmol/L (3.5-5.1)
[2024-01-01 06:07] LABS: HEPATITIS B SURFACE AB Non Reactive (.)
[2024-01-01 08:11] LABS: IMMUNOGLOBULIN A, SERUM 503 mg/dL (90-386); IMMUNOGLOBULIN G, SERUM 1368 mg/dL (603-1613); IMMUNOGLOBULIN M, SERUM 108 mg/dL (20-172)
[2024-01-01 12:10] LABS: *ANA ANTI-CENTROMERE B AB <0.2 AI (0.0-0.9); *ANA ANTI-DNA(DS) AB, QN 1 IU/mL (0-9); *ANA ANTI-JO-1 <0.2 AI (0.0-0.9); *ANA ANTICHROMATIN ANTIBODY <0.2 AI (0.0-0.9); *ANA RNP ANTIBODIES 0.2 AI (0.0-0.9); *ANA SJOGREN'S ANTI-SS-A <0.2 AI (0.0-0.9); *ANA SJOGREN'S ANTI-SS-B <0.2 AI (0.0-0.9); *ANAANTI-SCLERODERMA-70 AB <0.2 AI (0.0-0.9); *ANASMITH AB <0.2 AI (0.0-0.9); *SPE A/G RATIO 0.5 (0.7-1.7); *SPE ALPHA-1-GLOBULIN 0.4 g/dL (0.0-0.4); *SPE ALPHA-2-GLOBULIN 1.1 g/dL (0.4-1.0); *SPE BETA GLOBULIN 0.9 g/dL (0.7-1.3); *SPE GLOBULIN, TOTAL 3.7 g/dL (2.2-3.9); *SPE M-SPIKE Not Observed g/dL (Not Observed); *SPE PROTEIN TOTAL 5.7 g/dL (6.0-8.5); *SPEGAMMA GLOBULIN 1.3 g/dL (0.4-1.8); FREE KAPPA LT CHAINS SERUM 179.8 mg/L (3.3-19.4); FREE LAMBDA LT CHAIN SERUM 118.3 mg/L (5.7-26.3); KAPPA/LAMBDA RATIO SERUM 1.52 (0.26-1.65)
[2024-01-01] MEDS: ENOXAPARIN SODIUM 60 MG/0.6 ML DISP.SYRIN SQ SCH (13:17)
[2024-01-02] VITALS (38 sets, daily range): BP systolic 46–140; BP diastolic 34–80; TEMP 97.7–98.2; O2SAT 99–100
[2024-01-02 04:00] LABS: BASOPHILS % (AUTO) 0.1 % (0.0-2.0); EOSINOPHILS # (AUTO) 0.2 K/uL (0.0-0.7); EOSINOPHILS % (AUTO) 2.2 % (0.0-6.0); HEMATOCRIT 26 % (39-51); HEMOGLOBIN 8.5 g/dL (13.5-17.5); LYMPHOCYTES # (AUTO) 0.7 K/uL (0.8-4.8); LYMPHOCYTES % (AUTO) 8.1 % (20.0-44.0); MEAN CORPUSCULAR HEMOGLOBIN 30 PG (26.0-33.0); MEAN CORPUSCULAR HGB CONC 33 g/dl (31.0-36.0); MEAN CORPUSCULAR VOLUME 92 fL (80-96); MONOCYTES # (AUTO) 0.7 K/uL (0.1-1.30); MONOCYTES % (AUTO) 8.4 % (2.0-12.0); NEUTROPHILS # (AUTO) 7.2 K/uL (1.8-8.9); NEUTROPHILS % (AUTO) 81.2 % (43.0-81.0); PLATELET COUNT (AUTO) 145 K/uL (150-450); RED BLOOD CELL COUNT(AUTO) 2.81 MIL/uL (4.5-6.0); RED CELL DISTRIBUTION WIDTH 21.2 % (11.5-15.0); WHITE BLOOD COUNT (AUTO) 8.9 K/uL (4.3-11.0)
[2024-01-02 04:23] LABS: CALCIUM, SERUM 9.3 mg/dL (8.5-10.1); CREATININE 4.5 mg/dL (0.6-1.3); MAGNESIUM 3.2 mg/dL (1.8-2.4); PHOSPHORUS 7.6 mg/dL (2.5-4.9); POTASSIUM 4.2 mmol/L (3.5-5.1)
[2024-01-02] MEDS: MODAFINIL 100 MG TABLET NG SCH (08:42)
[2024-01-02] MEDS: NEPRO 1,000 ML BOTTLE GT PRN (18:52)
[2024-01-02] MEDS: ALBUMIN 25% 25 GM in PREMIX 1 EA IV PRN (18:54)
[2024-01-02] MEDS: METOPROLOL TARTRATE 25 MG TABLET NG SCH (21:04)
[2024-01-03] VITALS (45 sets, daily range): BP systolic 84–146; BP diastolic 49–87; TEMP 97.5–98.8; O2SAT 99–100
[2024-01-03 04:50] LABS: BASOPHILS % (AUTO) 0.3 % (0.0-2.0); EOSINOPHILS # (AUTO) 0.1 K/uL (0.0-0.7); EOSINOPHILS % (AUTO) 1.6 % (0.0-6.0); HEMATOCRIT 22 % (39-51); HEMOGLOBIN 7.4 g/dL (13.5-17.5); MEAN CORPUSCULAR HEMOGLOBIN 31 PG (26.0-33.0); MEAN CORPUSCULAR HGB CONC 33 g/dl (31.0-36.0); MEAN CORPUSCULAR VOLUME 93 fL (80-96); MONOCYTES # (AUTO) 0.7 K/uL (0.1-1.30); MONOCYTES % (AUTO) 8.3 % (2.0-12.0); NEUTROPHILS # (AUTO) 6.7 K/uL (1.8-8.9); NEUTROPHILS % (AUTO) 77.8 % (43.0-81.0); PLATELET COUNT (AUTO) 133 K/uL (150-450); RED BLOOD CELL COUNT(AUTO) 2.39 MIL/uL (4.5-6.0); RED CELL DISTRIBUTION WIDTH 20.9 % (11.5-15.0); WHITE BLOOD COUNT (AUTO) 8.6 K/uL (4.3-11.0)
[2024-01-03 05:08] LABS: CALCIUM, SERUM 8.9 mg/dL (8.5-10.1); CREATININE 3.1 mg/dL (0.6-1.3); MAGNESIUM 2.5 mg/dL (1.8-2.4); POTASSIUM 3.6 mmol/L (3.5-5.1)
[2024-01-03 13:09] LABS: HEPARIN INDUCED PLT AB 0.237 OD (0.000-0.400)
[2024-01-04] VITALS (25 sets, daily range): BP systolic 103–145; BP diastolic 57–87; TEMP 97.1–98.1; O2SAT 96–100
[2024-01-04 05:16] LABS: BASOPHILS % (AUTO) 0.1 % (0.0-2.0); EOSINOPHILS # (AUTO) 0.2 K/uL (0.0-0.7); HEMATOCRIT 22 % (39-51); HEMOGLOBIN 7.4 g/dL (13.5-17.5); LYMPHOCYTES # (AUTO) 0.9 K/uL (0.8-4.8); MEAN CORPUSCULAR HEMOGLOBIN 30 PG (26.0-33.0); MEAN CORPUSCULAR HGB CONC 33 g/dl (31.0-36.0); MEAN CORPUSCULAR VOLUME 92 fL (80-96); MONOCYTES # (AUTO) 0.6 K/uL (0.1-1.30); MONOCYTES % (AUTO) 6.9 % (2.0-12.0); NEUTROPHILS # (AUTO) 6.9 K/uL (1.8-8.9); PLATELET COUNT (AUTO) 132 K/uL (150-450); RED BLOOD CELL COUNT(AUTO) 2.43 MIL/uL (4.5-6.0); RED CELL DISTRIBUTION WIDTH 20.4 % (11.5-15.0); WHITE BLOOD COUNT (AUTO) 8.6 K/uL (4.3-11.0)
[2024-01-04 05:44] LABS: CALCIUM, SERUM 9.3 mg/dL (8.5-10.1); CREATININE 2.7 mg/dL (0.6-1.3); MAGNESIUM 2.3 mg/dL (1.8-2.4); PHOSPHORUS 4.9 mg/dL (2.5-4.9); POTASSIUM 3.5 mmol/L (3.5-5.1)
[2024-01-05] VITALS (25 sets, daily range): BP systolic 102–151; BP diastolic 60–91; TEMP 97.6–98.2; O2SAT 99–100
[2024-01-05 05:27] LABS: BASOPHILS % (AUTO) 0.3 % (0.0-2.0); EOSINOPHILS # (AUTO) 0.1 K/uL (0.0-0.7); EOSINOPHILS % (AUTO) 1.3 % (0.0-6.0); HEMATOCRIT 22 % (39-51); HEMOGLOBIN 7.5 g/dL (13.5-17.5); LYMPHOCYTES # (AUTO) 0.9 K/uL (0.8-4.8); LYMPHOCYTES % (AUTO) 8.2 % (20.0-44.0); MEAN CORPUSCULAR HEMOGLOBIN 31 PG (26.0-33.0); MEAN CORPUSCULAR HGB CONC 34 g/dl (31.0-36.0); MEAN CORPUSCULAR VOLUME 91 fL (80-96); MONOCYTES # (AUTO) 0.6 K/uL (0.1-1.30); MONOCYTES % (AUTO) 5.8 % (2.0-12.0); NEUTROPHILS # (AUTO) 8.8 K/uL (1.8-8.9); NEUTROPHILS % (AUTO) 84.4 % (43.0-81.0); PLATELET COUNT (AUTO) 154 K/uL (150-450); RED BLOOD CELL COUNT(AUTO) 2.43 MIL/uL (4.5-6.0); WHITE BLOOD COUNT (AUTO) 10.5 K/uL (4.3-11.0)
[2024-01-05 05:56] LABS: CALCIUM, SERUM 9.5 mg/dL (8.5-10.1); CREATININE 3.5 mg/dL (0.6-1.3); MAGNESIUM 2.5 mg/dL (1.8-2.4); PHOSPHORUS 6.9 mg/dL (2.5-4.9); POTASSIUM 3.6 mmol/L (3.5-5.1)
[2024-01-05 11:21] LABS: ABG BASE EXCESS 2.1 mmol/L; ABG PCO2 37.7 mmHg (35.0-45.0); ABG PH 7.457 (7.350-7.450); ABG PO2 112.5 mmHg (75.0-100.0); AaDO2 57.1 mmHg; COHb 0.3 % (0.5-1.5); MetHb 0.4 % (0.0-1.5); O2Hb 97.3 % (94.0-97.0); SITE, ABG Right Radial
[2024-01-05] MEDS ORDERED: IOHEXOL-350 100 ML VIAL IV ONE (14:51)
[2024-01-06] VITALS (29 sets, daily range): BP systolic 83–134; BP diastolic 55–83; TEMP 98–99.5; O2SAT 97–100
[2024-01-06 04:42] LABS: BASOPHILS % (AUTO) 0.2 % (0.0-2.0); EOSINOPHILS % (AUTO) 0.1 % (0.0-6.0); HEMATOCRIT 23 % (39-51); HEMOGLOBIN 7.2 g/dL (13.5-17.5); LYMPHOCYTES # (AUTO) 0.5 K/uL (0.8-4.8); LYMPHOCYTES % (AUTO) 4.1 % (20.0-44.0); MEAN CORPUSCULAR HEMOGLOBIN 30 PG (26.0-33.0); MEAN CORPUSCULAR HGB CONC 32 g/dl (31.0-36.0); MEAN CORPUSCULAR VOLUME 93 fL (80-96); MONOCYTES # (AUTO) 0.4 K/uL (0.1-1.30); NEUTROPHILS # (AUTO) 12.2 K/uL (1.8-8.9); NEUTROPHILS % (AUTO) 92.6 % (43.0-81.0); PLATELET COUNT (AUTO) 151 K/uL (150-450); RED BLOOD CELL COUNT(AUTO) 2.43 MIL/uL (4.5-6.0); RED CELL DISTRIBUTION WIDTH 20.4 % (11.5-15.0); WHITE BLOOD COUNT (AUTO) 13.2 K/uL (4.3-11.0)
[2024-01-06 05:15] LABS: CALCIUM, SERUM 9.2 mg/dL (8.5-10.1); CREATININE 2.6 mg/dL (0.6-1.3); MAGNESIUM 2.3 mg/dL (1.8-2.4); PHOSPHORUS 4.7 mg/dL (2.5-4.9); POTASSIUM 3.3 mmol/L (3.5-5.1)
[2024-01-06] MEDS: MODAFINIL 100 MG TABLET NG SCH (08:29)
[2024-01-06] MEDS: SOD FERRIC GLUC 125 MG in IV NS 0.9% 100 ML IV SCH (14:42)
[2024-01-06] MEDS: METOCLOPRAMIDE HCL 10 MG/10 ML UDC NG SCH (21:10)
[2024-01-06] MEDS: IV NS 0.9% 250 ML IV PRN (23:48)
[2024-01-07] VITALS (28 sets, daily range): BP systolic 85–140; BP diastolic 45–83; TEMP 98.3–99.4; O2SAT 92–100
[2024-01-07 04:51] LABS: EOSINOPHILS % (AUTO) 0.1 % (0.0-6.0); HEMATOCRIT 21 % (39-51); LYMPHOCYTES # (AUTO) 0.6 K/uL (0.8-4.8); LYMPHOCYTES % (AUTO) 3.1 % (20.0-44.0); MEAN CORPUSCULAR HEMOGLOBIN 30 PG (26.0-33.0); MEAN CORPUSCULAR HGB CONC 33 g/dl (31.0-36.0); MEAN CORPUSCULAR VOLUME 92 fL (80-96); MONOCYTES # (AUTO) 0.8 K/uL (0.1-1.30); MONOCYTES % (AUTO) 4.2 % (2.0-12.0); NEUTROPHILS % (AUTO) 92.6 % (43.0-81.0); PLATELET COUNT (AUTO) 147 K/uL (150-450); RED BLOOD CELL COUNT(AUTO) 2.32 MIL/uL (4.5-6.0); RED CELL DISTRIBUTION WIDTH 20.6 % (11.5-15.0); WHITE BLOOD COUNT (AUTO) 19.5 K/uL (4.3-11.0)
[2024-01-07 05:25] LABS: CALCIUM, SERUM 10.3 mg/dL (8.5-10.1); CREATININE 4.2 mg/dL (0.6-1.3); MAGNESIUM 2.7 mg/dL (1.8-2.4); PHOSPHORUS 5.9 mg/dL (2.5-4.9); POTASSIUM 3.3 mmol/L (3.5-5.1)
[2024-01-07 12:22] LABS: LYMPHOCYTES % (MANUAL) 3 % (16-48); MONOCYTES % (MANUAL) 3 % (0-11.0); NEUTROPHILS % (MANUAL) 94 (42-76); PLATELET ESTIMATE DECREASED
[2024-01-07 12:23] LABS: ANISOCYTOSIS 1+
[2024-01-07 14:50] LABS: HEMOGLOBIN 6.5 g/dL (13.5-17.5)
[2024-01-07] MEDS: diphenhydrAMINE HCL 50 MG/ML VIAL IV ONE (17:31)
[2024-01-07] MEDS: ACETAMINOPHEN 325 MG TABLET PO ONE (17:32)
[2024-01-07] MEDS: VANCOMYCIN 1 GM in IV D5W 250ml IV ONE (20:37)
[2024-01-07] MEDS: MEROPENEM 500 MG in IV NS 0.9% 50 ML IV SCH (20:37)
[2024-01-08] VITALS (27 sets, daily range): BP systolic 78–132; BP diastolic 55–78; TEMP 97.3–100.2; O2SAT 97–100
[2024-01-08] MEDS ORDERED: DEXTROSE 50%-WATER 50 ML DISP.SYRIN IV PRN ×2 (01:30→11:30)
[2024-01-08] MEDS: BLOOD SUGAR DIAGNOSTIC 1 EACH STRIP IN SCH ×2 (05:40→11:58)
[2024-01-08] MEDS: INSULIN REGULAR, HUMAN 100 UNIT/ML 3 ML VIAL SQ PRN ×2 (05:59→18:16)
[2024-01-08] MEDS ORDERED: VANCOMYCIN POST DIALYSIS 500MG IV PRN (06:00)
[2024-01-08 06:28] LABS: EOSINOPHILS % (AUTO) 0.1 % (0.0-6.0); HEMATOCRIT 23 % (39-51); HEMOGLOBIN 7.4 g/dL (13.5-17.5); LYMPHOCYTES # (AUTO) 0.5 K/uL (0.8-4.8); LYMPHOCYTES % (AUTO) 3.9 % (20.0-44.0); MEAN CORPUSCULAR HEMOGLOBIN 29 PG (26.0-33.0); MEAN CORPUSCULAR HGB CONC 32 g/dl (31.0-36.0); MEAN CORPUSCULAR VOLUME 89 fL (80-96); MONOCYTES # (AUTO) 0.9 K/uL (0.1-1.30); MONOCYTES % (AUTO) 6.5 % (2.0-12.0); NEUTROPHILS # (AUTO) 11.8 K/uL (1.8-8.9); NEUTROPHILS % (AUTO) 89.5 % (43.0-81.0); PLATELET COUNT (AUTO) 125 K/uL (150-450); RED BLOOD CELL COUNT(AUTO) 2.58 MIL/uL (4.5-6.0); RED CELL DISTRIBUTION WIDTH 21.4 % (11.5-15.0); WHITE BLOOD COUNT (AUTO) 13.2 K/uL (4.3-11.0)
[2024-01-08 07:10] LABS: C-REACTIVE PROTEIN 19.12 mg/dL (0.0-0.30)
[2024-01-08 08:00] LABS: CALCIUM, SERUM 8.5 mg/dL (8.5-10.1); CREATININE 2.9 mg/dL (0.6-1.3); MAGNESIUM 2.1 mg/dL (1.8-2.4); PHOSPHORUS 3.9 mg/dL (2.5-4.9)
[2024-01-08 09:03] LABS: INR 1.24 (0.91-1.10); PARTIAL THROMBOPLASTIN TIME 22.8 SEC (24.3-34.3)
[2024-01-08] MEDS ORDERED: LIDOCAINE 1% INJ 50 ML MDV IJ ONE (10:17)
[2024-01-08] MEDS ORDERED: LIDOCAINE 1%-EPI 1:100,000 20 ML VIAL ONE (10:18)
[2024-01-08] MEDS: POTASSIUM CL. PREMIX PERIPHER. 50 ML IV SCH (10:34)
[2024-01-08] MEDS ORDERED: FENTANYL PF 100MCG/2ML AMPUL ONE (11:14)
[2024-01-08] MEDS ORDERED: MIDAZOLAM HCL 2 MG/2ML VIAL ONE (11:15)
[2024-01-08] MEDS: VANCOMYCIN 1 GM in IV D5W 250ml IV ONE (13:42)
[2024-01-09] VITALS (26 sets, daily range): BP systolic 99–133; BP diastolic 61–82; TEMP 98.4–98.6; O2SAT 70–100
[2024-01-09 03:15] LABS: APPEARANCE,URINE TURBID (CLEAR); BILIRUBIN,URINE 3+ (NEGATIVE); BLOOD, URINE 3+ Ery/uL (NEGATIVE); COLOR,URINE RED (YELLOW); KETONES,URINE 1+ mg/dL (NEGATIVE); LEUKOCYTE ESTERASE ,URINE 3+ (NEGATIVE); NITRITE, URINE POSITIVE (NEGATIVE); PH,URINE 6.5 (5.0-8.0); PROTEIN,URINE 3+ mg/dl (NEGATIVE); UGLUCOSE TRACE mg/dL (NEGATIVE)
[2024-01-09 03:26] LABS: ADD URINE CULTURE YES; BACTERIA,URINE 3+ /HPF (None Seen); MUCUS,URINE Few /LPF (None Seen); RBC,URINE TOO NUMEROUS TO COUN /HPF (0-2); SQUAMOUS EPITHELIAL CELL,UR None Seen /HPF (None Seen); WBC,URINE 21-50 /HPF (0-3)
[2024-01-09 05:26] LABS: EOSINOPHILS % (AUTO) 0.2 % (0.0-6.0); HEMATOCRIT 23 % (39-51); HEMOGLOBIN 7.7 g/dL (13.5-17.5); LYMPHOCYTES # (AUTO) 0.9 K/uL (0.8-4.8); LYMPHOCYTES % (AUTO) 6.7 % (20.0-44.0); MEAN CORPUSCULAR HEMOGLOBIN 30 PG (26.0-33.0); MEAN CORPUSCULAR HGB CONC 33 g/dl (31.0-36.0); MEAN CORPUSCULAR VOLUME 89 fL (80-96); MONOCYTES # (AUTO) 0.8 K/uL (0.1-1.30); MONOCYTES % (AUTO) 6.1 % (2.0-12.0); NEUTROPHILS # (AUTO) 11.5 K/uL (1.8-8.9); PLATELET COUNT (AUTO) 125 K/uL (150-450); RED CELL DISTRIBUTION WIDTH 21.3 % (11.5-15.0); WHITE BLOOD COUNT (AUTO) 13.2 K/uL (4.3-11.0)
[2024-01-09 05:58] LABS: CALCIUM, SERUM 8.3 mg/dL (8.5-10.1); MAGNESIUM 2.2 mg/dL (1.8-2.4); PHOSPHORUS 5.1 mg/dL (2.5-4.9)
[2024-01-09 09:05] LABS: ABG BASE EXCESS -1.7 mmol/L; ABG OXYGEN SATURATION 97.3 % (92.0-98.5); ABG PCO2 35.7 mmHg (35.0-45.0); ABG PH 7.417 (7.350-7.450); ABG PO2 102.5 mmHg (75.0-100.0); ABG TOTAL HEMOGLOBIN 8.5 G/dL (13.5-18.0); COHb 0.3 % (0.5-1.5); MetHb 0.4 % (0.0-1.5); O2Hb 96.6 % (94.0-97.0); SITE, ABG Right Brachial; VENT MODE, BG C/A @28%
[2024-01-10] VITALS (11 sets, daily range): BP systolic 109–159; BP diastolic 60–86; TEMP 97.8–98.2; O2SAT 98–100
[2024-01-10 08:41] LABS: CALCIUM, SERUM 9.1 mg/dL (8.5-10.1); CREATININE 2.7 mg/dL (0.6-1.3); POTASSIUM 2.9 mmol/L (3.5-5.1)
[2024-01-10] MEDS: POTASSIUM CL. PREMIX PERIPHER. 50 ML IV SCH (10:51)
[2024-01-10] MEDS ORDERED: JEVITY 1.2 CAL 1,000 ML BOTTLE GT PRN (11:30)
[2024-01-11] VITALS (13 sets, daily range): BP systolic 113–147; BP diastolic 69–84; TEMP 97.8–98.8; O2SAT 95–100
[2024-01-11 08:15] LABS: BASOPHILS % (AUTO) 0.1 % (0.0-2.0); EOSINOPHILS # (AUTO) 0.1 K/uL (0.0-0.7); EOSINOPHILS % (AUTO) 1.5 % (0.0-6.0); HEMATOCRIT 31 % (39-51); HEMOGLOBIN 10.1 g/dL (13.5-17.5); LYMPHOCYTES % (AUTO) 9.9 % (20.0-44.0); MEAN CORPUSCULAR HEMOGLOBIN 29 PG (26.0-33.0); MEAN CORPUSCULAR HGB CONC 32 g/dl (31.0-36.0); MEAN CORPUSCULAR VOLUME 90 fL (80-96); MONOCYTES # (AUTO) 0.7 K/uL (0.1-1.30); MONOCYTES % (AUTO) 7.1 % (2.0-12.0); NEUTROPHILS # (AUTO) 8.1 K/uL (1.8-8.9); NEUTROPHILS % (AUTO) 81.4 % (43.0-81.0); PLATELET COUNT (AUTO) 148 K/uL (150-450); RED BLOOD CELL COUNT(AUTO) 3.44 MIL/uL (4.5-6.0); RED CELL DISTRIBUTION WIDTH 20.9 % (11.5-15.0)
[2024-01-11 08:44] LABS: CALCIUM, SERUM 9.9 mg/dL (8.5-10.1); CREATININE 3.8 mg/dL (0.6-1.3); POTASSIUM 3.2 mmol/L (3.5-5.1)
[2024-01-11 08:56] LABS: MAGNESIUM 2.6 mg/dL (1.8-2.4); PHOSPHORUS 4.8 mg/dL (2.5-4.9)
[2024-01-11 11:56] LABS: IRON, SERUM 60 ug/dl (50-175); TOTAL IRON BINDING CAPACITY 166 ug/dl (250-450)
[2024-01-11 12:51] LABS: FERRITIN 3341 ng/mL (8-388)
[2024-01-12] VITALS (13 sets, daily range): BP systolic 106–151; BP diastolic 56–86; TEMP 97.8–209.8; O2SAT 97–100
[2024-01-12 07:23] LABS: BASOPHILS % (AUTO) 0.1 % (0.0-2.0); EOSINOPHILS # (AUTO) 0.2 K/uL (0.0-0.7); EOSINOPHILS % (AUTO) 2.8 % (0.0-6.0); HEMATOCRIT 25 % (39-51); HEMOGLOBIN 8.1 g/dL (13.5-17.5); LYMPHOCYTES # (AUTO) 0.9 K/uL (0.8-4.8); LYMPHOCYTES % (AUTO) 11.2 % (20.0-44.0); MEAN CORPUSCULAR HEMOGLOBIN 29 PG (26.0-33.0); MEAN CORPUSCULAR HGB CONC 33 g/dl (31.0-36.0); MEAN CORPUSCULAR VOLUME 88 fL (80-96); MONOCYTES # (AUTO) 0.6 K/uL (0.1-1.30); MONOCYTES % (AUTO) 7.7 % (2.0-12.0); NEUTROPHILS # (AUTO) 6.1 K/uL (1.8-8.9); NEUTROPHILS % (AUTO) 78.2 % (43.0-81.0); PLATELET COUNT (AUTO) 128 K/uL (150-450); RED BLOOD CELL COUNT(AUTO) 2.79 MIL/uL (4.5-6.0); WHITE BLOOD COUNT (AUTO) 7.7 K/uL (4.3-11.0)
[2024-01-12 07:32] LABS: CALCIUM, SERUM 9.6 mg/dL (8.5-10.1); CREATININE 4.4 mg/dL (0.6-1.3); MAGNESIUM 2.5 mg/dL (1.8-2.4); PHOSPHORUS 4.1 mg/dL (2.5-4.9); POTASSIUM 3.1 mmol/L (3.5-5.1)
[2024-01-12 08:38] LABS: FERRITIN 2440 ng/mL (8-388)
[2024-01-12 09:14] LABS: IRON, SERUM 48 ug/dl (50-175); TOTAL IRON BINDING CAPACITY 129 ug/dl (250-450)
[2024-01-12] MEDS ORDERED: IOHEXOL 50 ML IV ONE (13:46)
[2024-01-12] MEDS ORDERED: ANESTHESIA TRAY IN PYXIS 1 EA TRAY MC ONE (13:47)
[2024-01-12] MEDS ORDERED: HEPARIN SODIUM, PORCINE 1,000 UNIT/ML VIAL ONE (13:47)
[2024-01-12] MEDS ORDERED: LIDOCAINE HCL/MPF 1% 30 ML VIAL IJ ONE (13:47)
[2024-01-13] VITALS (12 sets, daily range): BP systolic 113–133; BP diastolic 58–78; TEMP 97.7–99.3; O2SAT 94–100
[2024-01-13 07:11] LABS: BASOPHILS % (AUTO) 0.3 % (0.0-2.0); EOSINOPHILS # (AUTO) 0.1 K/uL (0.0-0.7); EOSINOPHILS % (AUTO) 1.7 % (0.0-6.0); HEMATOCRIT 25 % (39-51); HEMOGLOBIN 8.4 g/dL (13.5-17.5); LYMPHOCYTES % (AUTO) 13.6 % (20.0-44.0); MEAN CORPUSCULAR HEMOGLOBIN 30 PG (26.0-33.0); MEAN CORPUSCULAR HGB CONC 34 g/dl (31.0-36.0); MEAN CORPUSCULAR VOLUME 90 fL (80-96); MONOCYTES # (AUTO) 0.6 K/uL (0.1-1.30); MONOCYTES % (AUTO) 8.1 % (2.0-12.0); NEUTROPHILS # (AUTO) 5.7 K/uL (1.8-8.9); NEUTROPHILS % (AUTO) 76.3 % (43.0-81.0); PLATELET COUNT (AUTO) 122 K/uL (150-450); RED BLOOD CELL COUNT(AUTO) 2.81 MIL/uL (4.5-6.0); RED CELL DISTRIBUTION WIDTH 20.5 % (11.5-15.0); WHITE BLOOD COUNT (AUTO) 7.5 K/uL (4.3-11.0)
[2024-01-13 07:42] LABS: CREATININE 5.2 mg/dL (0.6-1.3); MAGNESIUM 2.9 mg/dL (1.8-2.4); PHOSPHORUS 5.5 mg/dL (2.5-4.9); POTASSIUM 3.5 mmol/L (3.5-5.1)
[2024-01-13 07:55] LABS: IRON, SERUM 41 ug/dl (50-175); TOTAL IRON BINDING CAPACITY 143 ug/dl (250-450)
[2024-01-13 08:33] LABS: CALCIUM, SERUM 9.4 mg/dL (8.5-10.1)
[2024-01-13 08:43] LABS: FERRITIN 2345 ng/mL (8-388)
[2024-01-14] VITALS (13 sets, daily range): BP systolic 111–132; BP diastolic 48–70; TEMP 97.9–99.5; O2SAT 98–100
[2024-01-14 14:21] LABS: BASOPHILS % (AUTO) 0.3 % (0.0-2.0); EOSINOPHILS # (AUTO) 0.2 K/uL (0.0-0.7); EOSINOPHILS % (AUTO) 2.9 % (0.0-6.0); HEMATOCRIT 25 % (39-51); HEMOGLOBIN 8.2 g/dL (13.5-17.5); LYMPHOCYTES # (AUTO) 0.9 K/uL (0.8-4.8); LYMPHOCYTES % (AUTO) 12.7 % (20.0-44.0); MEAN CORPUSCULAR HEMOGLOBIN 30 PG (26.0-33.0); MEAN CORPUSCULAR HGB CONC 33 g/dl (31.0-36.0); MEAN CORPUSCULAR VOLUME 92 fL (80-96); MONOCYTES # (AUTO) 0.6 K/uL (0.1-1.30); MONOCYTES % (AUTO) 7.9 % (2.0-12.0); NEUTROPHILS # (AUTO) 5.5 K/uL (1.8-8.9); NEUTROPHILS % (AUTO) 76.2 % (43.0-81.0); PLATELET COUNT (AUTO) 119 K/uL (150-450); RED BLOOD CELL COUNT(AUTO) 2.73 MIL/uL (4.5-6.0); WHITE BLOOD COUNT (AUTO) 7.2 K/uL (4.3-11.0)
[2024-01-15] VITALS (12 sets, daily range): BP systolic 115–147; BP diastolic 73–89; TEMP 97.9–98.9; O2SAT 99–100
[2024-01-15 06:33] LABS: BASOPHILS % (AUTO) 0.1 % (0.0-2.0); EOSINOPHILS # (AUTO) 0.2 K/uL (0.0-0.7); EOSINOPHILS % (AUTO) 1.9 % (0.0-6.0); HEMATOCRIT 26 % (39-51); HEMOGLOBIN 8.7 g/dL (13.5-17.5); LYMPHOCYTES # (AUTO) 1.2 K/uL (0.8-4.8); LYMPHOCYTES % (AUTO) 14.3 % (20.0-44.0); MEAN CORPUSCULAR HEMOGLOBIN 30 PG (26.0-33.0); MEAN CORPUSCULAR HGB CONC 33 g/dl (31.0-36.0); MEAN CORPUSCULAR VOLUME 90 fL (80-96); MONOCYTES # (AUTO) 0.5 K/uL (0.1-1.30); MONOCYTES % (AUTO) 6.4 % (2.0-12.0); NEUTROPHILS # (AUTO) 6.6 K/uL (1.8-8.9); NEUTROPHILS % (AUTO) 77.3 % (43.0-81.0); PLATELET COUNT (AUTO) 118 K/uL (150-450); RED BLOOD CELL COUNT(AUTO) 2.91 MIL/uL (4.5-6.0); RED CELL DISTRIBUTION WIDTH 20.6 % (11.5-15.0); WHITE BLOOD COUNT (AUTO) 8.5 K/uL (4.3-11.0)
[2024-01-15 09:41] LABS: LYMPHOCYTES % (MANUAL) 12 % (16-48); MONOCYTES % (MANUAL) 2 % (0-11.0); NEUTROPHILS % (MANUAL) 86 (42-76); PLATELET ESTIMATE DECRE
[2024-01-15 09:42] LABS: ANISOCYTOSIS 1+; OVALOCYTES 1+
[2024-01-16] VITALS (9 sets, daily range): BP systolic 123–130; BP diastolic 71–82; TEMP 98.8–210.4; O2SAT 98–100
[2024-01-17] VITALS (8 sets, daily range): BP systolic 108–135; BP diastolic 68–85; TEMP 98–99.1; O2SAT 97–100
[2024-01-17] MEDS ORDERED: HYDROMORPHONE 1 MG/1 ML DISP.SYRIN IV PRN
[2024-01-17] MEDS ORDERED: HYDROMORPHONE HCL 2 MG TABLET PO PRN
[2024-01-17] MEDS: HYDROMORPHONE 1 MG/1 ML DISP.SYRIN IV PRN (00:07)
[2024-01-17 08:30] LABS: BASOPHILS % (AUTO) 0.4 % (0.0-2.0); EOSINOPHILS # (AUTO) 0.1 K/uL (0.0-0.7); EOSINOPHILS % (AUTO) 1.5 % (0.0-6.0); HEMATOCRIT 26 % (39-51); HEMOGLOBIN 8.6 g/dL (13.5-17.5); LYMPHOCYTES # (AUTO) 1.4 K/uL (0.8-4.8); MEAN CORPUSCULAR HEMOGLOBIN 30 PG (26.0-33.0); MEAN CORPUSCULAR HGB CONC 33 g/dl (31.0-36.0); MEAN CORPUSCULAR VOLUME 90 fL (80-96); MONOCYTES # (AUTO) 0.6 K/uL (0.1-1.30); MONOCYTES % (AUTO) 7.9 % (2.0-12.0); NEUTROPHILS # (AUTO) 5.4 K/uL (1.8-8.9); NEUTROPHILS % (AUTO) 71.2 % (43.0-81.0); PLATELET COUNT (AUTO) 123 K/uL (150-450); RED BLOOD CELL COUNT(AUTO) 2.92 MIL/uL (4.5-6.0); RED CELL DISTRIBUTION WIDTH 20.2 % (11.5-15.0); WHITE BLOOD COUNT (AUTO) 7.6 K/uL (4.3-11.0)
[2024-01-17 08:44] LABS: CALCIUM, SERUM 8.6 mg/dL (8.5-10.1); CREATININE 4.5 mg/dL (0.6-1.3)
== END 2024-01-17 15:48 | disposition hospice, inpatient (51) | DRG 4 ==
LOC: ER 05:37 → ICU 08:44 → TELE-TD 01-09 15:43 → TELE1 01-09 16:04
PROVIDERS: ADMIT Nurse Practitioner Family; ATTEND Internal Medicine
PROC: 5A09457 Assistance with Respiratory Ventilation, 24-96 Consecutive Hours, Continuous Positive Airway Pressure (ICD-10-PCS; principal; 2023-12-18)
PROC: 05HB33Z Insertion of Infusion Device into Right Basilic Vein, Percutaneous Approach (ICD-10-PCS; 2023-12-18)
PROC: B54MZZA Ultrasonography of Right Upper Extremity Veins, Guidance (ICD-10-PCS; 2023-12-18)
PROC: 0BH18EZ Insertion of Endotracheal Airway into Trachea, Via Natural or Artificial Opening Endoscopic (ICD-10-PCS; 2023-12-25)
PROC: 5A1955Z Respiratory Ventilation, Greater than 96 Consecutive Hours (ICD-10-PCS; 2023-12-25)
PROC: 05H933Z Insertion of Infusion Device into Right Brachial Vein, Percutaneous Approach (ICD-10-PCS; 2023-12-26)
PROC: B54MZZA Ultrasonography of Right Upper Extremity Veins, Guidance (ICD-10-PCS; 2023-12-26)
PROC: 0BH18EZ Insertion of Endotracheal Airway into Trachea, Via Natural or Artificial Opening Endoscopic (ICD-10-PCS; 2023-12-26)
PROC: 05HM33Z Insertion of Infusion Device into Right Internal Jugular Vein, Percutaneous Approach (ICD-10-PCS; 2024-01-02)
PROC: B543ZZA Ultrasonography of Right Jugular Veins, Guidance (ICD-10-PCS; 2024-01-02)
PROC: 5A1D70Z Performance of Urinary Filtration, Intermittent, Less than 6 Hours Per Day (ICD-10-PCS; 2024-01-02)
PROC: 30233N1 Transfusion of Nonautologous Red Blood Cells into Peripheral Vein, Percutaneous Approach (ICD-10-PCS; 2024-01-07)
PROC: 0B113Z4 Bypass Trachea to Cutaneous, Percutaneous Approach (ICD-10-PCS; 2024-01-08)
PROC: 0JH63XZ Insertion of Tunneled Vascular Access Device into Chest Subcutaneous Tissue and Fascia, Percutaneous Approach (ICD-10-PCS; 2024-01-12)
PROC: 02HV33Z Insertion of Infusion Device into Superior Vena Cava, Percutaneous Approach (ICD-10-PCS; 2024-01-12)
PROC: B518YZA Fluoroscopy of Superior Vena Cava using Other Contrast, Guidance (ICD-10-PCS; 2024-01-12)
PROC: 05PYX3Z Removal of Infusion Device from Upper Vein, External Approach (ICD-10-PCS; 2024-01-12)
DX: A41.9 Sepsis, unspecified organism (principal); L89.154 Pressure ulcer of sacral region, stage 4; I50.33 Acute on chronic diastolic (congestive) heart failure; J96.01 Acute respiratory failure with hypoxia; J15.9 Unspecified bacterial pneumonia; I63.9 Cerebral infarction, unspecified; J15.69 Pneumonia due to other Gram-negative bacteria; G93.41 Metabolic encephalopathy; N17.0 Acute kidney failure with tubular necrosis; E44.0 Moderate protein-calorie malnutrition; R64 Cachexia; Z68.1 Body mass index [BMI] 19.9 or less, adult; I48.20 Chronic atrial fibrillation, unspecified; J90 Pleural effusion, not elsewhere classified; I82.413 Acute embolism and thrombosis of femoral vein, bilateral; D61.818 Other pancytopenia; I82.622 Acute embolism and thrombosis of deep veins of left upper extremity; I82.B12 Acute embolism and thrombosis of left subclavian vein; N39.0 Urinary tract infection, site not specified; E87.0 Hyperosmolality and hypernatremia; E87.20 Acidosis, unspecified; E78.5 Hyperlipidemia, unspecified; E87.6 Hypokalemia; F32.A Depression, unspecified; F41.9 Anxiety disorder, unspecified; E88.09 Other disorders of plasma-protein metabolism, not elsewhere classified; Z51.5 Encounter for palliative care; Z74.01 Bed confinement status; Z79.01 Long term (current) use of anticoagulants; Z79.82 Long term (current) use of aspirin; Z95.2 Presence of prosthetic heart valve; Z95.1 Presence of aortocoronary bypass graft; Z87.891 Personal history of nicotine dependence; Q90.9 Down syndrome, unspecified; M89.8X9 Other specified disorders of bone, unspecified site; D69.6 Thrombocytopenia, unspecified; D64.9 Anemia, unspecified; K76.0 Fatty (change of) liver, not elsewhere classified; I25.10 Atherosclerotic heart disease of native coronary artery without angina pectoris; R13.10 Dysphagia, unspecified; T36.8X5A Adverse effect of other systemic antibiotics, initial encounter; Y92.89 Other specified places as the place of occurrence of the external cause; E11.9 Type 2 diabetes mellitus without complications; I11.0 Hypertensive heart disease with heart failure
CPT/HCPCS: 31720; 36410; 36415; 36600; 70450-TC; 70496-TC; 70498-TC; 70551-TC; 71045-TC; 74018; 76700-TC; 76770-TC; 80048-TC; 80053-TC; 80061-TC; 80076-TC; 80202-TC; 81001; 82272-TC; 82570-TC; 82607-TC; 82728-TC; 82784; 82803-TC; 82962-TC; 83540-TC; 83605-TC; 83735-TC; 83880; 84100-TC; 84155; 84165; 84300-TC; 84443-TC; 84478-TC; 84484-TC; 85025-TC; 85027-TC; 85378-TC; 85396; 85610-TC; 85730-TC; 86022; 86140-TC; 86225; 86235; 86334; 86431-TC; 86706; 86803; 86850-TC; 87040-TC; 87081-TC; 87086-TC; 87102-TC; 87340; 90935-TC; 92526; 92611-TC; 93307-TC; 93880-TC; 93970-TC; 94002-TC; 94003-TC; 94640-TC; 94660; 94760-TC; 94761-TC; 94762-TC; 94799-TC; 97110-TC; 97535-TC; A4216; A4223; A6253; A6403; A7526; C1750; C9113; G0378; J0690; J0692; J1160; J1170; J1200; J1644; J1650; J1815; J1940; J2185; J2250; J2270; J2405; J2543; J2704; J2765; J2916; J3010; J3370; J3371; J3475; J3480; J3490; J7030; J7040; J7050; J7060; J7070; J8597; P9016; P9047; Q9967

== ENCOUNTER 2024-01-17 16:00 | Inpatient (IN) | payer OTHER ==
[~2024-01-17] VITALS: Ht 167.6 cm; Wt 53.1 kg
[~2024-01-17 16:00] MED LIST: ACET-868 PO; ALOG6.252 PO; APIX5TAB PO; ASCO-340 PO; ATOR10TA PO; BISA10SU11 RC; CHOL100043 PO; CYAN-51 PO; DIGO125T PO; DILT-32 PO; HONE44PA TP; HYDR-4076 PO; HYDR-500 PO; INSU100V39 SQ; L. A1TAB10 PO; LORA-258 PO; MAGN200T5 PO; MAGN400O6 PO; METF-440 PO; METO-357 PO; MULT-213 PO; NA P133E RC; SERT50TA PO; VANC125C11 PO; ZINC220C6 PO; ZINC57OI4 TP
[2024-01-17] MEDS: SCOPOLAMINE PATCH 1 MG/72HR TD SCH (19:06)
[2024-01-17 19:48] VITALS: O2SAT 100
[2024-01-17] MEDS: MORPHINE SULFATE INJ 2 MG/ML DISP.SYRIN IV PRN (23:40)
[2024-01-17 23:58] VITALS: O2SAT 99
[2024-01-18] VITALS (7 sets, daily range): BP systolic 143; BP diastolic 89; TEMP 98.4; O2SAT 97–100
[2024-01-19] VITALS (7 sets, daily range): BP systolic 102–150; BP diastolic 64–93; TEMP 96.7–98.8; O2SAT 96–100
[2024-01-19] MEDS: LORAZEPAM INJ 2 MG/ML VIAL IVP PRN (13:07)
[2024-01-20] VITALS (7 sets, daily range): BP systolic 112–149; BP diastolic 70–82; TEMP 97.3–98.4; O2SAT 95–100
[2024-01-21] VITALS (9 sets, daily range): BP systolic 125–127; BP diastolic 66–94; TEMP 98–99.1; O2SAT 96–99
[2024-01-21] MEDS ORDERED: MUPIROCIN OINT 2% 22 GM TUBE NS SCH (12:30)
[2024-01-22] VITALS (9 sets, daily range): BP systolic 112–118; BP diastolic 70–91; TEMP 97.8–98.6; O2SAT 94–99
[2024-01-23] VITALS (8 sets, daily range): BP systolic 95–158; BP diastolic 49–67; TEMP 98.4; O2SAT 93–100
[2024-01-24] VITALS (11 sets, daily range): BP systolic 83–129; BP diastolic 63–67; TEMP 97.9–98.6; O2SAT 94–100
[2024-01-24] MEDS: MORPHINE SULFATE PF DRIP 100 MG in IV D5W 96 ML IV PRN (15:20)
[2024-01-24] MEDS ORDERED: KEY,NONCONTROL,TO KEEP IN PYXI 1 EA MC ONE ×2 (15:41→16:02)
[2024-01-25] VITALS (7 sets, daily range): BP systolic 79–142; BP diastolic 59–105; TEMP 96–99.2; O2SAT 86–100
[2024-01-25] MEDS ORDERED: KEY,NONCONTROL,TO KEEP IN PYXI 1 EA MC ONE (15:03)
[2024-01-26] VITALS (10 sets, daily range): BP systolic 74–95; BP diastolic 53–76; TEMP 97–97.5; O2SAT 95–99
[2024-01-26] MEDS ORDERED: KEY,NONCONTROL,TO KEEP IN PYXI 1 EA MC ONE (14:56)
[2024-01-27] VITALS (10 sets, daily range): BP systolic 95–96; BP diastolic 53–65; TEMP 96–97.5; O2SAT 92–100
[2024-01-27] MEDS ORDERED: KEY,NONCONTROL,TO KEEP IN PYXI 1 EA MC ONE (15:24)
[2024-01-28 04:00] VITALS: BP 85/65; TEMP 96; O2SAT 95
[2024-01-28 04:15] VITALS: O2SAT 100
[2024-01-28 08:00] VITALS: BP 78/61; TEMP 97.9; O2SAT 99
[2024-01-28 08:06] VITALS: O2SAT 98
[2024-01-28] MEDS ORDERED: KEY,NONCONTROL,TO KEEP IN PYXI 1 EA MC ONE (11:49)
[2024-01-28 12:17] VITALS: O2SAT 98
== END 2024-01-28 19:15 | DRG 871 ==
LOC: HOSPICE1 16:00
PROVIDERS: ADMIT Internal Medicine; ATTEND Internal Medicine
DX: A41.9 Sepsis, unspecified organism (principal); I50.33 Acute on chronic diastolic (congestive) heart failure; J15.69 Pneumonia due to other Gram-negative bacteria; I63.9 Cerebral infarction, unspecified; J96.01 Acute respiratory failure with hypoxia; N17.0 Acute kidney failure with tubular necrosis; E87.20 Acidosis, unspecified; E44.0 Moderate protein-calorie malnutrition; I82.413 Acute embolism and thrombosis of femoral vein, bilateral; I11.0 Hypertensive heart disease with heart failure; Z66 Do not resuscitate; Z51.5 Encounter for palliative care; E11.40 Type 2 diabetes mellitus with diabetic neuropathy, unspecified; E78.5 Hyperlipidemia, unspecified; D64.9 Anemia, unspecified; E88.09 Other disorders of plasma-protein metabolism, not elsewhere classified; F41.9 Anxiety disorder, unspecified; F32.A Depression, unspecified; I48.91 Unspecified atrial fibrillation; Z79.84 Long term (current) use of oral hypoglycemic drugs; Z79.01 Long term (current) use of anticoagulants; Y95 Nosocomial condition; Q90.9 Down syndrome, unspecified; L89.159 Pressure ulcer of sacral region, unspecified stage
CPT/HCPCS: 31720; 87081-TC; 94640-TC; 94760-TC; 94761-TC; 94762-TC; 94799-TC; A4223; A4349; A4629; G0378; J2060; J2270; J2274; J7050; J7060